=== PATIENT | male | born 1970 | race Caucasian/White ===

== ENCOUNTER 2022-06-03 15:47 | Observation (INO) ==
[2022-06-03 16:57] LABS: INR 1.1; Prothrombin Time 12.4 Seconds (9.4-12.1)
[2022-06-03] MEDS: 0.9 % Sodium Chloride 1,000 ML IVC SCH ×2 (17:11→21:57)
[2022-06-03] MEDS ORDERED: Piperacillin/Tazobactam 3.375 GM in 0.9 % Sodium Chloride Mini Bag 100 ML IVPB ONE (17:56)
[2022-06-03 18:06] LABS: Basophils % 0.4 %; Eosinophils % 0.4 %; Hematocrit 47.9 % (37.5-50.1); Hemoglobin 15.7 g/dL (12.9-16.9); Immature Granulocytes % 0.2 % (0-4); Lymphocytes # 1.4 K/mcL (0.6-4.6); Lymphocytes % 14.1 %; Mean Corpuscular HGB Conc 32.8 g/dL (31.6-35.5); Mean Corpuscular Hemoglobin 26.7 pg (28.0-33.3); Mean Corpuscular Volume 81.5 fL (83.0-100.0); Mean Platelet Volume 10.9 fL (9.4-12.4); Monocytes # 0.5 K/mcL (0.0-1.3); Monocytes % 5.6 %; Neutrophils # 7.6 K/mcL (1.6-8.9); Platelet Count 208 K/mcL (140-400); Red Blood Count 5.88 M/mcL (4.19-5.50); Red Cell Distribution Width 14.6 % (11.5-14.5); Segmented Neutrophils % 79.3 %; White Blood Count 9.6 K/mcL (4.3-11.1)
[2022-06-03 18:08] LABS: Influenza A PCR Negative (Negative); Influenza B PCR Negative (Negative); Resp. Syncytial Virus PCR Negative (Negative); SARS-CoV-2 by PCR (In House) Negative (Negative)
[2022-06-03] MEDS ORDERED: Morphine Sulfate 2 MG/ML SYRINGE IVP ONE (18:35)
[2022-06-03 18:47] LABS: Calcium 10.7 mg/dL (8.6-10.3); Potassium 4.9 mEq/L (3.5-5.1)
[2022-06-03] MEDS ORDERED: *HR* HYDROmorphone (PF) 1 MG/ML SYRINGE IVP ONE (18:54)
[2022-06-03] MEDS ORDERED: Naloxone 0.4 MG/ML INJ IVP PRN (19:22)
[2022-06-03] MEDS ORDERED: Melatonin 3 MG TABLET PO PRN (19:22)
[2022-06-03] MEDS ORDERED: *HR* Promethazine 25 MG/ML VIAL IM PRN (19:22)
[2022-06-03] MEDS ORDERED: Ketorolac 30 MG/ML VIAL IM PRN (19:22)
[2022-06-03] MEDS ORDERED: Ondansetron 4 MG/2 ML VIAL IVP PRN (19:22)
[2022-06-03] MEDS ORDERED: D5% in Water 1,000 ML IVC PRN (19:29)
[2022-06-03] MEDS ORDERED: *HR* Dextrose 50 % in Water (Syg) 50 ML SYRINGE IVP PRN (19:29)
[2022-06-03] MEDS ORDERED: Dextrose Gel 15 GM/37.5 ML TUBE PO PRN ×2 (19:29)
[2022-06-03 19:48] LABS: Albumin 4.9 g/dL (3.5-5.7); Albumin/Globulin Ratio 1.4 (1.1-2.2); Bilirubin,Direct 0.1 mg/dL (0.0-0.2); Bilirubin,Indirect 0.6 mg/dL (0.0-1.0); Bilirubin,Total 0.7 mg/dL (0.3-1.0); Globulin 3.6 g/dL (2.4-3.5); Total Protein 8.5 g/dL (6.4-8.9)
[2022-06-03] MEDS: Insulin DETEMIR 100 UNIT/ML X5UNITS SUBQ SCH (21:57)
[2022-06-04] MEDS: Insulin LISPRO 300 UNITS/3 ML VIAL SUBQ SCH ×5 (00:13→22:00)
[2022-06-04] MEDS ORDERED: Loratadine 10 MG TABLET PO PRN (00:28)
[2022-06-04] MEDS ORDERED: *HR* Enoxaparin 40 MG/0.4 ML SYRINGE SQ SCH (06:00)
[2022-06-04] MEDS: 0.9 % Sodium Chloride 1,000 ML IVC SCH ×3 (06:10→16:32)
[2022-06-04 06:12] LABS: Basophils % 0.6 %; Eosinophils # 0.2 K/mcL (0.0-0.6); Eosinophils % 3.1 %; Hematocrit 44.3 % (37.5-50.1); Hemoglobin 14.2 g/dL (12.9-16.9); Immature Granulocytes % 0.4 % (0-4); Lymphocytes % 28.2 %; Mean Corpuscular HGB Conc 32.1 g/dL (31.6-35.5); Mean Corpuscular Hemoglobin 26.2 pg (28.0-33.3); Mean Corpuscular Volume 81.9 fL (83.0-100.0); Mean Platelet Volume 10.8 fL (9.4-12.4); Monocytes # 0.6 K/mcL (0.0-1.3); Monocytes % 8.4 %; Neutrophils # 4.2 K/mcL (1.6-8.9); Platelet Count 189 K/mcL (140-400); Red Blood Count 5.41 M/mcL (4.19-5.50); Red Cell Distribution Width 14.9 % (11.5-14.5); Segmented Neutrophils % 59.3 %; White Blood Count 7.1 K/mcL (4.3-11.1)
[2022-06-04 06:19] LABS: INR 1.1; Prothrombin Time 11.9 Seconds (9.4-12.1)
[2022-06-04 06:33] LABS: Calcium 9.2 mg/dL (8.6-10.3); Magnesium 2.3 mg/dL (1.6-2.6); Potassium 3.9 mEq/L (3.5-5.1)
[2022-06-04] MEDS: Cholecalciferol (D-3) 1,000 UNIT (25MCG) TABLET PO SCH (08:07)
[2022-06-04] MEDS: Ascorbic Acid 500 MG TABLET PO SCH (08:07)
[2022-06-04] MEDS ORDERED: traZODone 50 MG TABLET PO SCH (21:00)
[2022-06-04] MEDS ORDERED: diazePAM 5 MG TABLET PO SCH (21:00)
[2022-06-04] MEDS: Insulin DETEMIR 100 UNIT/ML X5UNITS SUBQ SCH (22:02)
[2022-06-05 00:35] VITALS: O2SAT 96
[2022-06-05] MEDS: 0.9 % Sodium Chloride 1,000 ML IVC SCH (02:39)
[2022-06-05] MEDS ORDERED: *HR* Enoxaparin 60 MG/0.6 ML SYRINGE SQ SCH (06:00)
[2022-06-05 07:36] VITALS: BP 152/68; PULSE 71; TEMP 98.2
[2022-06-05] MEDS: Cholecalciferol (D-3) 1,000 UNIT (25MCG) TABLET PO SCH (08:28)
[2022-06-05] MEDS: Ascorbic Acid 500 MG TABLET PO SCH (08:29)
[2022-06-05] MEDS: Insulin LISPRO 300 UNITS/3 ML VIAL SUBQ SCH (08:29)
== END 2022-06-05 10:17 | disposition home or self-care (01) ==
LOC: 3ANU 15:47 → EMEROOARM 15:47 → SUATTDRO 19:23 → 3ANU 20:52
PROVIDERS: ADMIT Internal Medicine; ATTEND Internal Medicine